=== PATIENT | female | born 1980 | race African-American/Black ===

== ENCOUNTER 2018-12-03 02:04 | Emergency (ER) | payer SELFPAY | END 2018-12-03 02:38 | disposition home or self-care (01) | LOC: MADERS 02:04 | DX: S16.1XXA Strain of muscle, fascia and tendon at neck level, initial encounter (principal); S29.012A Strain of muscle and tendon of back wall of thorax, initial encounter; S46.911A Strain of unspecified muscle, fascia and tendon at shoulder and upper arm level, right arm, initial encounter; Z87.442 Personal history of urinary calculi; V43.62XA Car passenger injured in collision with other type car in traffic accident, initial encounter | CPT/HCPCS: 99283 ==

== ENCOUNTER 2021-03-19 20:29 | Emergency (ER) | payer SELFPAY ==
[2021-03-19] MEDS ORDERED: Amoxicillin/Potassium Clav 875 MG TAB ONE (20:42)
== END 2021-03-19 20:47 | disposition home or self-care (01) ==
LOC: MADERS 20:29
DX: J32.9 Chronic sinusitis, unspecified (principal); B96.89 Other specified bacterial agents as the cause of diseases classified elsewhere; Z87.442 Personal history of urinary calculi
CPT/HCPCS: 99283

== ENCOUNTER 2021-04-02 20:59 | Emergency (ER) | payer BC ==
[2021-04-02] MEDS ORDERED: Dexamethasone 10 MG/ML VIAL ONE (21:28)
[2021-04-02] MEDS ORDERED: Ibuprofen 800 MG TAB ONE (21:28)
== END 2021-04-02 21:54 | disposition home or self-care (01) ==
LOC: MADERS 20:59
DX: M25.561 Pain in right knee (principal)
CPT/HCPCS: 99283; J1100

== ENCOUNTER 2021-07-02 15:32 | Emergency (ER) | payer BC, SELFPAY ==
[2021-07-02 18:40] LABS: Bilirubin Small (Negative); Blood, Urine Moderate (Negative); Glucose, Urine (Dipstick) Negative (Negative); Ketone, Urine 15 mg/dL (Negative); Leukocyte Negative (Negative); Nitrite Negative (Negative); Protein, Urine (Dipstick) Trace mg/dL (Neg-Trace)
[2021-07-02 18:42] LABS: Clarity Hazy (Clear); Specific Gravity, Urine 1.035 (1.002-1.036)
[2021-07-02 18:44] LABS: WBC/HPF 0-3 HPF (0-3)
[2021-07-02 18:45] LABS: Bacteria/HPF 2+ HPF (None Seen); Squamous Epithelial None Seen HPF (0-3)
[2021-07-02 18:53] LABS: Pregnancy Test - Urine (BHCG) Negative (Negative); Pregu Control Background? CLEAR/WHITE (CLR/WHITE); Pregu Control Bar Appear? YES (CONTROL BAR); Specific Gravity 1.035 (1.002-1.036)
[2021-07-02] MEDS ORDERED: Ketorolac Tromethamine 30 MG/ML VIAL ONE (20:09)
== END 2021-07-02 20:18 | disposition home or self-care (01) ==
LOC: MADERS 15:32
DX: N20.0 Calculus of kidney (principal); F17.210 Nicotine dependence, cigarettes, uncomplicated
CPT/HCPCS: 81003; 81015; 81025; 96372; 99284; J1885

== ENCOUNTER 2021-07-11 21:55 | Emergency (ER) | payer SELFPAY | END 2021-07-11 23:46 | disposition left against medical advice (07) | LOC: MADERS 21:55 | DX: Z53.21 Procedure and treatment not carried out due to patient leaving prior to being seen by health care provider (principal) ==

== ENCOUNTER 2021-08-06 19:52 | Emergency (ER) | payer SELFPAY ==
[2021-08-06] MEDS ORDERED: Ibuprofen 800 MG TAB ONE (20:26)
== END 2021-08-06 20:31 | disposition home or self-care (01) ==
LOC: MADERS 19:52
DX: H92.02 Otalgia, left ear (principal); M79.604 Pain in right leg; Z87.442 Personal history of urinary calculi
CPT/HCPCS: 99283

== ENCOUNTER 2021-08-16 07:54 | Emergency (ER) | payer SELFPAY ==
[2021-08-16] MEDS ORDERED: Ketorolac Tromethamine 30 MG/ML VIAL ONE (08:44)
== END 2021-08-16 09:14 | disposition home or self-care (01) ==
LOC: MADERS 07:54
DX: M25.561 Pain in right knee (principal); G89.29 Other chronic pain
CPT/HCPCS: 96372; 99283; J1885

== ENCOUNTER 2021-09-02 03:47 | Emergency (ER) | payer SELFPAY ==
[2021-09-02 16:55] LABS: SARS-CoV-2 PCR by NAA Not Detected (NotDetected)
== END 2021-09-02 04:25 | disposition home or self-care (01) ==
LOC: MADERS 03:47
DX: J06.9 Acute upper respiratory infection, unspecified (principal); Z20.822 Contact with and (suspected) exposure to COVID-19
CPT/HCPCS: 99284; U0003; U0005

== ENCOUNTER 2022-07-23 01:34 | Emergency (ER) | payer SELFPAY ==
[2022-07-23] MEDS ORDERED: Ketorolac Tromethamine 30 MG/ML VIAL ONE (01:55)
[2022-07-23 01:57] LABS: #Basophils 0.1 thou/uL (0.0-0.2); #Eosinphils 0.3 thou/uL (0.0-0.7); #Lymphocytes 2.9 thou/uL (1.20-3.40); #Monocytes 0.5 thou/uL (0.11-0.59); #Neutrophils 6.3 thou/uL (1.40-6.50); %Basophils 0.8 % (0.0-1.0); %Eosinophils 3.4 % (0.0-10.0); %Lymphocytes 28.4 % (21.0-51.0); %Monocytes 4.8 % (0.0-10.0); %Neutrophils 62.6 % (42.0-75.0); Hemoglobin 12.3 g/dL (12.0-16.0); Mean Corpuscular HGB CONC 30.8 g/dL (32.0-36.0); Mean Corpuscular Hemoglobin 25.8 pg (27.0-31.0); Mean Platelet Volume 7.1 fL (7.4-10.4); Platelet Count 260 thou/uL (130-400); RBC Distribution Width 14.1 % (11.5-14.5); Red Blood Cell (RBC) Count 4.74 mill/uL (4.20-5.40); White Blood Cell (WBC) Count 10.1 thou/uL (4.8-10.8)
[2022-07-23 02:17] LABS: ALT (SGPT) 17 U/L (8-55); AST (SGOT) 22 U/L (5-34); Albumin 3.6 g/dL (3.5-5.0); Alkaline Phosphatase 76 U/L (40-110); Anion Gap 15 mmol/L (10-20); BUN (Urea Nitrogen) 15 mg/dL (7.0-18.7); Bilirubin, Total 0.3 mg/dL (0.2-1.2); CK (CPK) 107 U/L (29-168); Calc. Creatinine Clearance 0 mL/min (70-130); Calcium 8.6 mg/dL (7.8-10.44); Carbon Dioxide 20 mmol/L (22-29); Chloride 108 mmol/L (98-107); Estimated GFR 87; Globulin 3.9 g/dL (2.4-3.5); Glucose 102 mg/dL (70-105); Potassium 4.3 mmol/L (3.5-5.1); Protein, Total 7.5 g/dL (6.0-8.3); Sodium 139 mmol/L (136-145)
== END 2022-07-23 03:12 | disposition home or self-care (01) ==
LOC: MADERS 01:34
DX: R29.898 Other symptoms and signs involving the musculoskeletal system (principal)
CPT/HCPCS: 71045; 80053; 82550; 84484; 85025; 93005; 96374; J1885

== ENCOUNTER 2024-10-05 16:23 | Emergency (ER) | payer SELFPAY | END 2024-10-05 18:19 | disposition home or self-care (01) | LOC: MADERS 16:23 | DX: J45.909 Unspecified asthma, uncomplicated (principal) | CPT/HCPCS: 71046; 87081; 87430 ==

== ENCOUNTER 2025-08-08 06:50 | Emergency (ER) | payer SELFPAY ==
[2025-08-08] MEDS ORDERED: Dexamethasone 4 MG TAB ONE (07:47)
== END 2025-08-08 07:55 | disposition home or self-care (01) ==
LOC: MADERS 06:50
DX: J02.9 Acute pharyngitis, unspecified (principal); R03.0 Elevated blood-pressure reading, without diagnosis of hypertension; E66.9 Obesity, unspecified
CPT/HCPCS: 87081; 87430; 99283; J8540

== ENCOUNTER 2025-09-14 05:58 | Emergency (ER) | payer SELFPAY ==
[2025-09-14] MEDS ORDERED: predniSONE 20 MG TAB ONE (07:20)
== END 2025-09-14 07:45 | disposition home or self-care (01) ==
LOC: MADERS 05:58
DX: M25.562 Pain in left knee (principal); E66.9 Obesity, unspecified
CPT/HCPCS: J1885; J7512